=== PATIENT | female | born 1935 | race Two or more races ===

== ENCOUNTER 2017-12-04 22:55 | Emergency (ER) | payer OTHER ==
[~2017-12-04] VITALS: Ht 157.5 cm; Wt 82.1 kg
[~2017-12-04 22:55] MED LIST: AVALIDE 300-251 TAB PO; CETIRIZINE HCL10 MG PO; TAZTIA XT120 MG PO
[2017-12-05] MEDS ORDERED: DUI500 PO (01:04)
== END 2017-12-05 01:14 | disposition home or self-care (01) ==
LOC: ER 22:55
DX: S01.02XA Laceration with foreign body of scalp, initial encounter (principal); W01.118A Fall on same level from slipping, tripping and stumbling with subsequent striking against other sharp object, initial encounter; Y93.89 Activity, other specified; Y92.018 Other place in single-family (private) house as the place of occurrence of the external cause; Y99.8 Other external cause status